=== PATIENT | female | born 1995 | race Caucasian/White ===

== ENCOUNTER 2017-10-15 20:53 | Outpatient (CLI) | payer BC, OTHER ==
[2017-10-15 21:35] LABS: APPEARANCE,URINE CLEAR; BILIRUBIN,URINE NEGATIVE (NEGATIVE); COLOR,URINE YELLOW; GLUCOSE, URINE NEGATIVE (NEGATIVE); KETONES,URINE NEGATIVE (NEGATIVE); LEUKOCYTE ESTERASE,URINE NEGATIVE (NEGATIVE); NITRITE,URINE NEGATIVE (NEGATIVE); PROTEIN,URINE NEGATIVE (NEGATIVE); URINE SPECIFIC GRAVITY 1.012; UROBILINOGEN,URINE NEGATIVE mg/dL (<2.0)
[2017-10-15 21:51] LABS: URINE AMPHETAMINES SCREEN NEGATIVE; URINE BARBITURATES SCREEN NEGATIVE; URINE BENZODIAZEPINES SCREEN NEGATIVE; URINE COCAINE SCREEN NEGATIVE; URINE MARIJUANA (THC) SCREEN NEGATIVE; URINE METHADONE SCREEN NEGATIVE; URINE PHENCYCLIDINE SCREEN NEGATIVE
== END 2017-10-15 22:33 | disposition home or self-care (01) ==
LOC: LC 20:53
PROVIDERS: ATTEND Obstetrics & Gynecology
PROC: 4A1HXCZ Monitoring of Products of Conception, Cardiac Rate, External Approach (ICD-10-PCS; principal; 2017-10-15)
DX: O47.03 False labor before 37 completed weeks of gestation, third trimester (principal); Z3A.29 29 weeks gestation of pregnancy
CPT/HCPCS: 80307; 81001

== ENCOUNTER 2017-12-20 03:59 | Outpatient (CLI) | payer BC, OTHER ==
--- NOTE | 2017-12-20 04:07 | L&D Progress Notes ---
PROGRESS NOTES Datetime Report Generated by CPN: 12/20/2017 04:06 PROGRESS NOTE Impression Other: contractions Procedures- Other: NST Plan: Discharge Informed Consent Obtained- Other: labor precautions Comment: contractions at 29.3. Reactive/Category 1 NST. Discharged home with labor precautions VAGINAL EXAM Contractions: deferred MEMBRANES Pooling: Negative FETUS A FHR - Baseline: 140 Monitoring: External US Variability: Moderate 6-25bpm Accelerations: 15X15 Decelerations: None FHR Category: Category I : 29.3 SIGNATURE SIGNATURE: [id number] Signature: with User ID: [email or web address]
[2017-12-20 04:22] LABS: APPEARANCE,URINE SLIGHTLY-CLOUDY; BILIRUBIN,URINE NEGATIVE (NEGATIVE); COLOR,URINE YELLOW; GLUCOSE, URINE NEGATIVE (NEGATIVE); KETONES,URINE NEGATIVE (NEGATIVE); LEUKOCYTE ESTERASE,URINE TRACE (NEGATIVE); NITRITE,URINE NEGATIVE (NEGATIVE); PROTEIN,URINE NEGATIVE (NEGATIVE); URINE SPECIFIC GRAVITY 1.008; UROBILINOGEN,URINE NEGATIVE mg/dL (<2.0)
[2017-12-20 05:05] LABS: URINE AMPHETAMINES SCREEN NEGATIVE; URINE BARBITURATES SCREEN NEGATIVE; URINE BENZODIAZEPINES SCREEN NEGATIVE; URINE COCAINE SCREEN NEGATIVE; URINE MARIJUANA (THC) SCREEN NEGATIVE; URINE METHADONE SCREEN NEGATIVE; URINE PHENCYCLIDINE SCREEN NEGATIVE
== END 2017-12-20 06:17 | disposition home or self-care (01) ==
LOC: LC 03:59
PROVIDERS: ATTEND Obstetrics & Gynecology
PROC: 4A1HXCZ Monitoring of Products of Conception, Cardiac Rate, External Approach (ICD-10-PCS; principal; 2017-12-20)
DX: O47.1 False labor at or after 37 completed weeks of gestation (principal); Z3A.38 38 weeks gestation of pregnancy
CPT/HCPCS: 59025; 80307; 81005

== ENCOUNTER 2017-12-20 23:55 | Inpatient (IN) | payer BC, OTHER ==
[2017-12-21 00:35] LABS: APPEARANCE,URINE CLEAR; BILIRUBIN,URINE NEGATIVE (NEGATIVE); COLOR,URINE YELLOW; GLUCOSE, URINE NEGATIVE (NEGATIVE); KETONES,URINE NEGATIVE (NEGATIVE); LEUKOCYTE ESTERASE,URINE NEGATIVE (NEGATIVE); NITRITE,URINE NEGATIVE (NEGATIVE); PROTEIN,URINE NEGATIVE (NEGATIVE); URINE SPECIFIC GRAVITY 1.008; UROBILINOGEN,URINE NEGATIVE mg/dL (<2.0)
[2017-12-21 01:33] LABS: URINE AMPHETAMINES SCREEN NEGATIVE; URINE BARBITURATES SCREEN NEGATIVE; URINE BENZODIAZEPINES SCREEN NEGATIVE; URINE MARIJUANA (THC) SCREEN NEGATIVE; URINE METHADONE SCREEN NEGATIVE; URINE PHENCYCLIDINE SCREEN NEGATIVE
[2017-12-21 01:46] LABS: URINE COCAINE SCREEN NEGATIVE
[2017-12-21] MEDS ORDERED: RINGERS SOLUTION,LACTATED 1,000 ML IV PRN (02:14)
[2017-12-21] MEDS ORDERED: RINGERS SOLUTION,LACTATED 1,000 ML IV ONE (02:14)
[2017-12-21 02:39] LABS: ABSOLUTE BASOPHILS # (AUTO) 0.1 10^3/uL (0.0-0.2); ABSOLUTE EOSINOPHILS # (AUTO) 0.2 10^3/uL (0.0-0.6); ABSOLUTE LYMPHOCYTES (AUTO) 1.7 10^3/uL (0.5-4.7); ABSOLUTE MONOCYTES (AUTO) 1.2 10^3/uL (0.1-1.4); ABSOLUTE NEUT (AUTO) 13.7 10^3/uL (1.7-8.2); BASOPHILS % (AUTO) 0.4 % (0-2); EOSINOPHILS % (AUTO) 0.9 % (0-6); HEMATOCRIT 35.1 % (36.0-47.0); HEMOGLOBIN 12.1 g/dL (12.0-15.5); LYMPHOCYTES % (AUTO) 9.9 % (13-45); MEAN CORPUSCULAR HEMOGLOBIN 30.8 pg (27.0-33.4); MEAN CORPUSCULAR HGB CONC 34.3 g/dL (32.0-36.0); MEAN CORPUSCULAR VOLUME 90 fl (80-97); MONOCYTES % (AUTO) 7.3 % (3-13); PLATELET COUNT 255 10^3/uL (150-450); RED BLOOD COUNT 3.92 10^6/uL (3.72-5.28); RED CELL DISTRIBUTION WIDTH 13.3 % (11.5-14.0); SEGMENTED NEUTROPHILS % (AUTO) 81.5 % (42-78); TOTAL CELLS COUNTED % (AUTO) 100 %; WHITE BLOOD COUNT 16.8 10^3/uL (4.0-10.5)
[2017-12-21] MEDS ORDERED: FENTANYL/BUPIVACAINE/NS/PF 200 MCG/100 ML RTUINJ EPI ONE (03:42)
[2017-12-21] MEDS ORDERED: MISOPROSTOL 0.2 MG TABLET ONE (03:42)
[2017-12-21] MEDS ORDERED: EPHEDRINE SULFATE INJ 50 MG/1 ML AMPULE ONE (03:42)
[2017-12-21] MEDS ORDERED: BUPIVACAINE HCL 0.25 % INJ/PF (2.5 MG/1 ML) 30 ML VIAL ONE (03:42)
[2017-12-21] MEDS ORDERED: OXYTOCIN/NORMAL SALINE 20 UNIT/1,000 ML RTUINJ ONE (03:42)
[2017-12-21] MEDS ORDERED: LIDOCAINE 1% INJ-PF (10 MG/ML) 30 ML SDV ONE (03:42)
--- NOTE | 2017-12-21 04:35 | Admission Physical ---
Datetime Report Generated by CPN: 12/21/2017 04:35 CURRENT ADMISSION Chief Complaint: Uterine Contractions Indication for Induction: Not Applicable Admit Impression : Term, Intrauterine Admit Plan: Admit to Unit ALLERGIES Medication Allergies: No Medication Allergies: No Known Allergies (12/21/2017) Latex: No Latex Allergies Food Allergies: fruit Environmental Allergies: trees, grass, cats OBSTETRICAL HISTORY EDC: 12/28/2017 00:00 : 1 Para: 0 Term: 0 : 0 SAB: 0 IAB: 0 Ectopic: 0 Livin Cesareans: 0 VBACs: 0 Multiple Births: 0 Gestational Diabetes: No Rh Sensitization: No Incompetent Cervix: No MG: No Infertility: No ART Treatment: No Uterine Anomaly: No IUGR: No Hx Previous C/S: No Macrosomia: No Hx Loss/Stillborn: No PIH: No Hx : No Placenta Previa/Abruption: No Depression/PP Depression: No PTL/PROM: No Post Hemorrhage: No Current Procedures: Ultrasound; NST Obstetrical History Comments: G1- current SEE RECORDS Alcohol: No Marijuana : No Cocaine: No Other Illicit Drugs: No Cigarettes: Never Smoker. 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 INFECTIOUS HISTORY Gonorrhea: No Genital Herpes: No Chlamydia: No Tuberculosis: No Syphilis: No Hepatitis: No HIV/AIDS Exposure: No Rash or Viral Illness: No HPV: No PHYSICAL EXAM General: Normal HEENT: Normal Neurologic: Normal Thyroid: Normal Heart: Normal Lungs: Normal Breast: Normal Back: Normal Abdomen: Normal Genitourinary Exam: Normal Extremities: Normal DTRs: Normal Pelvic Type: Adequate Vital Signs: Reviewed VAGINAL EXAM Dilatation: 5 Effacement: 75 Station: -1 Contraction Comments: deferred MEMBRANES Pooling: Negative Membranes: Intact FETUS A EGA: 39.0 Monitoring: External US FHR- Baseline: 150 Variability: Moderate 6-25bpm Accelerations: 15X15 Decelerations: None FHR Category: Category I Estimated Weight (gm): 3300 Presentation: Vertex PLANS FOR LABOR AND DELIVERY Labor and Delivery: None Pain Management: Epidural Feeding Preference: Both Benefit of Breast Feed Discussed: Yes Circumcision: Yes INFORMED CONSENT Informed Consent Obtained- Other: labor precautions Signature: with User ID: [email or web address]
[2017-12-21] MEDS ORDERED: OXYTOCIN/NORMAL SALINE 20 UNIT/1,000 ML RTUINJ IV PRN ×2 (06:57→13:24)
[2017-12-21] MEDS ORDERED: FENTANYL CITRATE INJ/PF 100 MCG/2 ML AMPUL ONE (08:42)
[2017-12-21] MEDS ORDERED: FENTANYL CITRATE INJ/PF 100 MCG/2 ML AMPUL IV ONE (08:43)
--- NOTE | 2017-12-21 09:41 | L&D Progress Notes ---
PROGRESS NOTES Datetime Report Generated by CPN: 12/21/2017 09:40 PROGRESS NOTE Impression: Normal Progression of Labor Procedures: Sterile Vag Exam Plan: Continue Present Management Informed Consent Obtained: Vaginal Delivery; Risks, Benefits and Alternatives Discussed Comment: 22 yo EDC 12/28/17 EGA 39 weeks admitted in labor primip asthma hx of headaches pitocin at 8 millinutes/ min sve 9/c/+1 pt repositioned poc reviewed with pt and family anticipate vaginal delivery VAGINAL EXAM Dilatation: 5 Effacement: 75 Station: -1 MEMBRANES Pooling: Negative Membranes: Intact FETUS A Monitoring: External US Variability: Moderate 6-25bpm Accelerations: 15X15 Decelerations: None FHR Category: Category I : 39.0 : 39.0 Estimated Weight (gm): 3300 Presentation: Vertex SIGNATURE SIGNATURE: [id number] SIGNATURE: [id number];[id number] Assignment: Vick Farley MD Signature: with User ID: [email or web address] : with User ID: [email or web address]
[2017-12-21] MEDS ORDERED: ACETAMINOPHEN 650 MG SUPP.RECT PR ONE (10:53)
[2017-12-21] MEDS ORDERED: IBUPROFEN 800 MG TABLET ONE (12:05)
--- NOTE | 2017-12-21 12:26 | Warning Signs in Babies ---
VOD Warning Signs Datetime Report Generated by [facility]: 12/21/2017 12:25 VOD#608 -Warning Signs in Babies: Viewed with Parent(s)/Family (10/15/2017 21:32:ZAFAR Montelongo)
--- NOTE | 2017-12-21 12:40 | Warning Signs in Babies ---
VOD Warning Signs Datetime Report Generated by [facility]: 12/21/2017 12:40 VOD#608 -Warning Signs in Babies: Viewed with Parent(s)/Family (12/21/2017 11:30:ZAFAR Montelongo)
[2017-12-21] MEDS ORDERED: ZOLPIDEM TARTRATE 5 MG TABLET PO PRN (13:24)
[2017-12-21] MEDS ORDERED: MEASLES,MUMPS&RUBELLA VACC/PF 0.5 ML VIAL SUBCUT PRN (13:24)
[2017-12-21] MEDS ORDERED: DIBUCAINE 1% OINTMENT 28 GM TP PRN (13:24)
[2017-12-21] MEDS ORDERED: BENZOCAINE/MENTHOL AEROSOL SPRAY 56 ML TOP PRN (13:24)
[2017-12-21] MEDS ORDERED: DIPH/PERTUSS(ACELL)/TETANUS VAC/PF 0.5 ML SYR (>=10YO) IM PRN (13:24)
[2017-12-21] MEDS: IBUPROFEN 800 MG TABLET PO SCH ×2 (15:27→21:30)
[2017-12-21] MEDS: DOCUSATE SODIUM 100 MG CAPSULE PO SCH (17:15)
[2017-12-21] MEDS: FERROUS SULFATE 325 MG TABLET PO SCH (17:16)
[2017-12-22] MEDS: IBUPROFEN 800 MG TABLET PO SCH ×3 (05:14→21:37)
[2017-12-22 07:23] LABS: HEMATOCRIT 30.7 % (36.0-47.0); HEMOGLOBIN 10.5 g/dL (12.0-15.5); MEAN CORPUSCULAR HEMOGLOBIN 31.4 pg (27.0-33.4); MEAN CORPUSCULAR HGB CONC 34.1 g/dL (32.0-36.0); MEAN CORPUSCULAR VOLUME 92 fl (80-97); PLATELET COUNT 216 10^3/uL (150-450); RED BLOOD COUNT 3.34 10^6/uL (3.72-5.28); RED CELL DISTRIBUTION WIDTH 13.7 % (11.5-14.0)
--- NOTE | 2017-12-22 08:47 | Delivery Summary ---
Del Sum A-C Datetime Report Generated by CPN: 12/22/2017 08:47 DELIVERY PERSONNEL DELIVERY PERSONNEL: [id number] Delivery Doctor:: Lauren Davis CNM Nurse Fabrication Engineer Certified:: Lauren Davis CNM Labor and Delivery Nurse:: ZAFAR Montelongo Nursery Nurse:: Christel Bro RN Nursery Nurse:: Claudia Edwards RN MATERNAL INFORMATION Delivery Anesthesia: Epidural Medications After Delivery: Pitocin Bolus-Please Comment Maternal Complications: Maternal Fever Provider Comments: delivery of viable male apgars 8/9 DARREN bulb suctioned on perineum nuchal x 1 infant to abdomen tactile stimulation elicits spont cry EBL 300 cc pt bonding well with infant LABOR SUMMARY EDC: 12/28/2017 00:00 No. Babies in Womb: 1 Attempted: No Labor Anesthesia: Epidural LABOR INFORMATION Reason for Induction: Not Applicable Onset of Labor: 12/21/2017 03:00 Complete Dilatation: 12/21/2017 10:05 Oxytocin: Augmentation Group B Beta Strep: negative Steroids Given: None Reason Steroids Not Administered: Not Applicable MEMBRANES Membranes Rupture Method: Artificial Rupture of Membranes: 12/21/2017 06:51 Length of Rupture (hr): 4.57 Amniotic Fluid Color: Clear Amniotic Fluid Amount: Moderate Amniotic Fluid Odor: Normal STAGES OF LABOR Stage 1 hr: 7 Stage 1 min: 5 Stage 2 hr: 1 Stage 2 min: 20 Stage 3 hr: 0 Stage 3 min: 3 Total Time in Labor hr: 8 Total Time in Labor min: 28 VAGINAL DELIVERY Episiotomy: None Laceration #1: Vaginal Laceration Extension #1: First Degree Laceration Repair: Yes Sponge Count Correct: N/A Sharps Count Correct: N/A CSECTION DELIVERY Primary Indication: N/A Secondary Indication: N/A CSection Incidence: N/A Labor: N/A Elective: N/A CSection Incision: N/A BABY A INFORMATION Delivery Date/Time: 12/21/2017 11:25 Method of Delivery: Vaginal Method of Delivery: Vaginal Born in Route : No : N/A Forceps: N/A Vacuum Extraction: N/A Shoulder Dystocia : No PRESENTATION/POSITION BABY A Presentation: Cephalic Presentation: Cephalic Presentation: Cephalic Cephalic Presentation: Vertex Vertex Position: Right Occipital Anterior Breech Presentation: N/A PLACENTA INFORMATION BABY A Placenta Delivery Time : 12/21/2017 11:28 (Annotations: Data stored by [facility] on behalf of user) Placenta Method of Delivery: Spontaneous Placenta Status: Delivered SCORES BABY A Heart Rate 1 min: >100 bpm Resp Effort 1 min: Good Cry Reflex Irritability 1 min: Cough or Sneeze or Pulls Away Muscle Tone 1 min: Active Motion Color 1 min: Blue/Pale Resuscitation Effort 1 min: Tactile Stimulation SCORE 1 MIN: 8 Heart Rate 5 min: >100 bpm Resp Effort 5 min: Good Cry Reflex Irritability 5 min: Cough or Sneeze or Pulls Away Muscle Tone 5 min: Active Motion Color 5 min: Body [place], Extremities Blue Resuscitation Effort 5 min: N/A SCORE 5 MIN: 9 Resuscitation Effort 10 min: N/A INFORMATION BABY A Gestational Age at Delivery: 39.0 Gestational Status: Full Term- 39- 40.6 Weeks Infant Outcome : Liveborn Condition : Stable Infant Sex: Male Sex: Female IDENTIFICATION BABY A Infant Verification Date/Time: 12/21/2017 12:25 ID Band Number: [id number] Mother's Name Verified: Yes RN Verifying Infant: Jessica Camp RNC Additional Verifying Personnel: Sofia Tate RN WEIGHT/LENGTH BABY A Birthweight (gm): 3690 Infant Weight (lb): 8 Weight (oz): 2 Length (in): 20.50 Length (cm): 52.07 CORD INFORMATION BABY A No. Cord Vessels: 3 Nuchal Cord : Around Neck x1, Loose Cord Blood Taken: Yes-For Storage (Mom's Blood type +) Suction: Mouth; Nose ASSESSMENT BABY A Infant Complications: Extended Tachycardia; Meconium Infant Complications- Other: terminal mec Physical Findings at Delivery: Caput Succedaneum; Molding of the Head Respirations: Appears Normal Skin to Skin: Yes Skin to Skin Time (min): 45 Adjunct Psychology Instructor/ALS Called : No Infant Care By: Yamilet Rawls RN Transferred To: Remains with Mother BABY B INFORMATION : N/A SIGNATURES Assignment: Vick Farley MD Signature: with User ID: [email or web address] : with User ID: [email or web address]
[2017-12-22] MEDS: SENNOSIDES/DOCUSATE 8.6-50 MG 1 EACH TABLET PO SCH (09:19)
[2017-12-22] MEDS: DOCUSATE SODIUM 100 MG CAPSULE PO SCH ×2 (09:19→18:48)
[2017-12-22] MEDS: FERROUS SULFATE 325 MG TABLET PO SCH ×2 (09:19→18:48)
[2017-12-22] MEDS: PRENATAL VITAMIN W DHA CAPSULE PO SCH (09:19)
--- NOTE | 2017-12-22 11:03 | PDOC PROGRESS REPORT ---
Subjective-OB Progress Note for:: 12/22/17 Physical Exam (OB) Vital Signs: Temp Pulse Resp BP Pulse Ox 98.0 F 88 17 102/60 98 12/22/17 07:48 12/22/17 07:48 12/22/17 07:48 12/22/17 07:48 12/22/17 07:48 Intake & Output 12/21/17 12/22/17 12/23/17 06:59 06:59 06:59 Intake Total 500 350 Balance 500 350 Weight 88.5 kg - Lochia Lochia Amount: Scant < 10 ml Lochia Color: Rubra/Red - Abdomen Description: Tender, Soft Hernia Present: No Bowel Sounds: Normoactive Flatus Presence: Present Stool: Yes Fundal Description: Firm, Midline Fundal Height: u/u - u/2 Objective-Diagnostic Laboratory: 12/22/17 06:59 12/22/17 06:59 WBC 18.0 H RBC 3.34 L Hgb 10.5 L Hct 30.7 L MCV 92 MCH 31.4 MCHC 34.1 RDW 13.7 Plt Count 216
[2017-12-23] MEDS: IBUPROFEN 800 MG TABLET PO SCH (05:38)
[2017-12-23 06:19] LABS: HEMATOCRIT 30.8 % (36.0-47.0); HEMOGLOBIN 10.5 g/dL (12.0-15.5); MEAN CORPUSCULAR HEMOGLOBIN 31.2 pg (27.0-33.4); MEAN CORPUSCULAR HGB CONC 34.2 g/dL (32.0-36.0); MEAN CORPUSCULAR VOLUME 91 fl (80-97); PLATELET COUNT 223 10^3/uL (150-450); RED BLOOD COUNT 3.37 10^6/uL (3.72-5.28); RED CELL DISTRIBUTION WIDTH 13.6 % (11.5-14.0); WHITE BLOOD COUNT 12.5 10^3/uL (4.0-10.5)
[2017-12-23 09:00] VITALS: BP 111/66
[2017-12-23] MEDS: DOCUSATE SODIUM 100 MG CAPSULE PO SCH (10:26)
[2017-12-23] MEDS: PRENATAL VITAMIN W DHA CAPSULE PO SCH (10:26)
[2017-12-23] MEDS: FERROUS SULFATE 325 MG TABLET PO SCH (10:26)
[2017-12-23] MEDS: SENNOSIDES/DOCUSATE 8.6-50 MG 1 EACH TABLET PO SCH (10:27)
--- NOTE | 2017-12-23 11:12 | PDOC DISCHARGE SUMMARY ---
Final Diagnosis Discharge Date: 12/23/17 - Final Diagnosis (1) Delivery normal Is this a current diagnosis for this admission?: Yes (2) History of asthma Is this a current diagnosis for this admission?: Yes (3) Is this a current diagnosis for this admission?: Yes Discharge Data - Discharge Medication Prescriptions: Docusate Sodium [Colace 100 mg Capsule] 100 mg PO BID #60 capsule Ferrous Sulfate [Feosol 325 mg Tablet] 325 mg PO BID #60 tablet Ibuprofen [Motrin 800 mg Tablet] 800 mg PO Q8 #60 tablet Home Medications: Albuterol Sulfate [Proair HFA Inhalation Aerosol 8.5 gm MDI] 1 puff IH Q4 PRN Metoprolol Succinate 25 mg PO DAILY 10/15/17 Vit/Iron Fum/Folic AC [ Tablet] 1 each PO DAILY 12/20/17 Docusate Sodium [Colace 100 mg Capsule] 100 mg PO BID #60 capsule 12/23/17 Ferrous Sulfate [Feosol 325 mg Tablet] 325 mg PO BID #60 tablet 12/23/17 Ibuprofen [Motrin 800 mg Tablet] 800 mg PO Q8 #60 tablet 12/23/17 Gestational Age: 3690 Reason(s) for Admission: Onset of Labor Procedures: NST Intrapartum Procedure(s): Spontaneous Vaginal Delivery Complication(s): Laceration-Perineal Laceration-Degree: 1st - Data Baby 1 Male at 1 minute: 8 at 5 minutes: 9 Weight: 3690 kg Home with Mother: Yes Complications: No - Diagnosis Test Laboratory: Temp Pulse Resp BP Pulse Ox 97.9 F 85 17 107/65 98 12/23/17 08:05 12/23/17 08:05 12/23/17 08:05 12/23/17 08:05 12/23/17 08:05 12/21/17 12/21/17 12/22/17 00:07 02:29 06:59 RBC 3.92 3.34 L Hgb 12.1 10.5 L Hct 35.1 L 30.7 L Urine Opiates Screen NEGATIVE 12/23/17 05:40 RBC 3.37 L Hgb 10.5 L Hct 30.8 L Urine Opiates Screen - Discharge information/Instructions Discharge Activity: Activity As Tolerated, Pelvic Rest, No tub bath Discharge Diet: Regular Disposition: HOME, SELF-CARE Follow up with: [facility] in: 4, Weeks
[2017-12-23] MEDS ORDERED: ALBUTEROL SULFATE HFA (90 MCG/PUFF) 200 PUFF/8.5 GM MDI IH PRN (13:22)
[2017-12-24] MEDS ORDERED: METOPROLOL SUCCINATE 25 MG TAB.SR.24H PO SCH (10:00)
== END 2017-12-23 13:05 | disposition home or self-care (01) | DRG 774 ==
LOC: LC 23:55 → NUR 12-21 01:51 → LR 12-21 01:58 → 2S 12-21 13:44
PROVIDERS: ADMIT Obstetrics & Gynecology; ATTEND Obstetrics & Gynecology
PROC: 10E0XZZ Delivery of Products of Conception, External Approach (ICD-10-PCS; principal; 2017-12-21)
PROC: 0HQ9XZZ Repair Perineum Skin, External Approach (ICD-10-PCS; 2017-12-21)
PROC: 10907ZC Drainage of Amniotic Fluid, Therapeutic from Products of Conception, Via Natural or Artificial Opening (ICD-10-PCS; 2017-12-21)
PROC: 4A1HXCZ Monitoring of Products of Conception, Cardiac Rate, External Approach (ICD-10-PCS; 2017-12-21)
DX: O99.52 Diseases of the respiratory system complicating childbirth (principal); O75.2 Pyrexia during labor, not elsewhere classified; J45.909 Unspecified asthma, uncomplicated; O70.0 First degree perineal laceration during delivery; O69.81X0 Labor and delivery complicated by cord around neck, without compression, not applicable or unspecified; O77.0 Labor and delivery complicated by meconium in amniotic fluid; O76 Abnormality in fetal heart rate and rhythm complicating labor and delivery; Z91.018 Allergy to other foods; Z91.048 Other nonmedicinal substance allergy status; Z91.09 Other allergy status, other than to drugs and biological substances; Z3A.39 39 weeks gestation of pregnancy; Z37.0 Single live birth
CPT/HCPCS: 36415; 80307; 81005; 85025; 85027; 86592; 86850; 86900; 86901; 88307; J2590; J3010; J3490